=== PATIENT | male | born 2000 | race Two or more races ===

== ENCOUNTER 2022-07-19 20:15 | Emergency (ER) | payer SELFPAY ==
[~2022-07-19] VITALS: Ht 170.2 cm; Wt 63.5 kg
[2022-07-19 22:48] LABS: Basophils # (auto) 0 10 ^3/uL (0-0.2); Basophils % (auto) 0.2 % (0.0-2.0); Eosinophils # (auto) 0 10 ^3/uL (0-0.8); Eosinophils % (auto) 0.1 % (0.0-7.0); Hematocrit 41.8 % (41.0-53.0); Hemoglobin 14.4 g/dL (13.5-17.5); Lymphocytes % (auto) 5.6 % (10.0-50.0); Mean Corpuscular Hemoglobin 29.2 pg (28.0-32.0); Mean Corpuscular Hgb Conc. 34.5 g/dL (32.0-36.0); Mean Corpuscular Volume 84.7 fL (80.0-100.0); Monocytes # (auto) 0.9 10 ^3/uL (0-1.3); Monocytes % (auto) 4.9 % (0.0-12.0); Neutrophils # (auto) 16.1 10 ^3/uL (1.6-8.6); Neutrophils % (auto) 89.2 % (37.0-80.0); Nucleated Red Blood Cells % 0.1 %; Red Blood Cells 4.93 10^6/uL (4.5-5.90); Red Cell Distribution Width 14.5 % (11.8-14.3)
[2022-07-19 22:55] LABS: Calcium 8.2 mg/dL (8.5-10.1); Potassium 4.1 mmol/L (3.5-5.1)
[2022-07-19 22:58] LABS: Bilirubin, Total 0.5 mg/dL (0.2-1.0); Total Protein 6.5 g/dL (6.4-8.2)
[2022-07-20] MEDS ORDERED: ACETAMINOPHEN/CODEINE#3 (300/30mg) TAB PO ONE (00:15)
[2022-07-20 00:24] VITALS: BP 104/63
[2022-07-20] MEDS ORDERED: LIDOCAINE 1% HCL (LOCAL ANESTH.) INJ 20ML MDV ID ONE (01:15)
[2022-07-20] MEDS ORDERED: cefTRIAXone SOD 1,000 MG VL IM ONE (01:15)
[2022-07-20] MEDS ORDERED: ONDANSETRON ODT 4 MG TAB PO ONE (01:15)
[2022-07-20] MEDS ORDERED: MECLIZINE HCL 25 MG TAB PO ONE (01:15)
[2022-07-20] MEDS ORDERED: MUPI2OIN2 EX (01:38)
[2022-07-20] MEDS ORDERED: CEPH-510 PO (01:38)
[2022-07-20] MEDS ORDERED: MECL1TAB42 PO (01:38)
[2022-07-20] MEDS ORDERED: ONDA-144 PO (01:38)
[2022-07-20] MEDS ORDERED: IBU600T PO (01:38)
[2022-07-20 01:44] LABS: Urine Bacteria FEW /hpf (None Seen); Urine Blood Negative /uL (Negative); Urine WBC 1 /hpf (0 - 3)
[2022-07-20 02:11] LABS: Urine Specific Gravity > 1.050 (1.001-1.035)
== END 2022-07-20 02:09 | disposition home or self-care (01) ==
LOC: ER 20:15
DX: S01.01XA Laceration without foreign body of scalp, initial encounter (principal); S13.4XXA Sprain of ligaments of cervical spine, initial encounter; S06.0X0A Concussion without loss of consciousness, initial encounter; S20.219A Contusion of unspecified front wall of thorax, initial encounter; R10.9 Unspecified abdominal pain; V89.2XXA Person injured in unspecified motor-vehicle accident, traffic, initial encounter; Y93.89 Activity, other specified; Y92.89 Other specified places as the place of occurrence of the external cause; Y99.8 Other external cause status
CPT/HCPCS: 12002; 36415; 70450; 70486; 71260; 72125; 74177; 80053; 81001; 85025; 96372; 99285; J0696; J8597; Q0162

== ENCOUNTER 2022-08-05 18:50 | Emergency (ER) | payer SELFPAY ==
[~2022-08-05] VITALS: Ht 170.2 cm; Wt 65.0 kg
[~2022-08-05 18:50] MED LIST: CEPH-510 PO; IBU600T PO; MECL1TAB42 PO; MUPI2OIN2 EX; ONDA-144 PO
[2022-08-05 19:16] VITALS: BP 115/68
== END 2022-08-05 23:18 | disposition left against medical advice (07) ==
LOC: ER 18:53
DX: T14.8XXD Other injury of unspecified body region, subsequent encounter (principal); Z53.21 Procedure and treatment not carried out due to patient leaving prior to being seen by health care provider; X58.XXXD Exposure to other specified factors, subsequent encounter